=== PATIENT | female | born 2000 | race Two or more races ===

== ENCOUNTER 2018-12-19 16:20 | Emergency (ER) | payer SELFPAY ==
[2018-12-19] MEDS ORDERED: PENICILLIN G BENZATHINE 1.2 MILLION UNIT/2 ML DISP.SYRIN IM ONE (19:11)
[2018-12-19] MEDS ORDERED: IBUPROFEN 600 MG TABLET PO ONE (19:11)
[2018-12-19] MEDS ORDERED: DEXAMETHASONE SOD PHOS INJ 10 MG/1 ML VIAL IM ONE (19:11)
--- NOTE | 2018-12-19 19:16 | ER Document Report ---
ED Oral Problem - General Chief Complaint: Neck Swelling Stated Complaint: RIGHT SIDE NECK PAIN, SWELLING Time Seen by Provider: 12/19/18 19:03 Mode of Arrival: Ambulatory Information source: Patient TRAVEL OUTSIDE OF THE [place] IN LAST 30 DAYS: No - HPI Patient complains to provider of: Sore throat Notes: Patient here with complaints of sore throat and neck pain. Patient states pain started approximately a few days ago. Pain is worse with movement as well as swallowing. Pain seems to be located more on the right than the left. No fever. No difficulty breathing or swallowing. No chest pain or shortness of breath. No nausea, vomiting, diarrhea. No injury. No blurred or loss of vision. No rash. Pain is moderate, constant, worse with swallowing, nothing makes it better. She is taken no medication today. She denies any severe headache. No blurred or loss of vision. No other complaints. - Related Data Allergies/Adverse Reactions: No Known Allergies Allergy (Unverified 12/19/18 16:25) Past Medical History - Social History Smoking Status: Current Every Day Smoker Family History: Reviewed & Not Pertinent Patient has suicidal ideation: No Patient has homicidal ideation: No Renal/ Medical History: Denies: Hx Peritoneal Dialysis Review of Systems - Review of Systems -: Yes All other systems reviewed and negative Physical Exam - Vital signs Vitals: Temp Pulse Resp BP Pulse Ox 98.3 F 91 18 144/94 H 98 12/19/18 16:28 12/19/18 16:28 12/19/18 16:28 12/19/18 16:28 12/19/18 16:28 - Notes Notes: GENERAL: alert, cooperative, nontoxic, no distress. HEAD: normocephalic, atraumatic EYES: conjunctiva pink without discharge, no external redness or swelling. EARS: no external swelling, no external redness, no mastoid redness, swelling, tenderness. Ear canals are clear without swelling or drainage. TMs pearly martinez, no redness, no bulging, normal landmarks, no perforation. NOSE: atraumatic, no external swelling. clear rhinorrhea noted. MOUTH/THROAT: mucous membranes moist and pink, patient with palatal petechiae with erythema and bilateral tonsillar swelling. No exudate. No peritonsillar abscess. No trismus or drooling. Voice is normal. NECK: soft, supple, full range of motion, no meningismus. No swelling, bilateral anterior cervical lymphadenopathy. Mild tenderness along the right lateral neck. No swelling. CHEST: no distress, lungs clear and equal throughout. No wheezing, rales, rhonchi. CARDIAC: regular rate and rhythm, no murmur, normal capillary refill, normal pulses. No peripheral edema noted. BACK: full range of motion, no CVA tenderness. EXTREMITIES: full range of motion of all extremities. No redness, no swelling. NEURO: alert and oriented A&O3, no focal deficits, full range of motion of all extremities. PYSCH: appropriate mood, affect. Patient is cooperative. SKIN: pink, warm, dry, no rash. Course - Re-evaluation Re-evalutation: 12/19/18 19:14 Patient is nontoxic appearing with stable vitals. Patient is here with complaints of sore throat and neck pain. Throat exam consistent with streptococcal pharyngitis that she has palatal petechiae with erythema and swelling. No signs of peritonsillar abscess, epiglottitis or other serious illness. She has some cervical lymphadenopathy. Patient will be given a dose of Decadron, Bicillin, Motrin. Patient will be discharged home with instructions to follow-up if not improving the next 2 days, sooner for worsening pain, fever, swelling, difficulty breathing or swelling, persistent vomiting, or for any further concerns. The patient's emergency department workup and current diagnosis were explained to the patient and or family. Follow-up instructions were provided. Medications if prescribed were discussed. Instructions for when to return to the emergency department including specific worrisome symptoms were discussed with the patient and/or family. - Vital Signs Vital signs: Temp Pulse Resp BP Pulse Ox 98.3 F 91 18 144/94 H 98 12/19/18 16:28 12/19/18 16:28 12/19/18 16:28 12/19/18 16:28 12/19/18 16:28 Discharge - Discharge Clinical Impression: Strep pharyngitis Condition: Stable Disposition: HOME, SELF-CARE Instructions: Strep Throat ([facility]) Additional Instructions: Take medication as prescribed. Drink plenty fluids. Tylenol as needed for pain. Follow-up if not improved in the next 2 days, sooner for worsening pain, fever, difficulty breathing or swallowing, persistent vomiting, or for any further concerns. Change her toothbrush in 48 hours. Prescriptions: Naproxen [Naprosyn] 500 mg PO BID #20 tablet Forms: Elevated Blood Pressure, Smoking Cessation Education Referrals: [facility] [Provider Group] - Follow up as needed
[2018-12-19 20:28] VITALS: BP 98/62
== END 2018-12-19 20:19 | disposition home or self-care (01) ==
LOC: ER 16:20
DX: J02.0 Streptococcal pharyngitis (principal); R22.1 Localized swelling, mass and lump, neck; M54.2 Cervicalgia; F17.200 Nicotine dependence, unspecified, uncomplicated
CPT/HCPCS: 99283; 96372; J0561; J1100

== ENCOUNTER 2019-09-10 20:37 | Emergency (ER) | payer SELFPAY ==
[2019-09-10 21:02] LABS: ABSOLUTE BASOPHILS # (AUTO) 0.1 10^3/uL (0.0-0.2); ABSOLUTE EOSINOPHILS # (AUTO) 0.2 10^3/uL (0.0-0.6); ABSOLUTE LYMPHOCYTES (AUTO) 1.9 10^3/uL (0.5-4.7); ABSOLUTE MONOCYTES (AUTO) 0.6 10^3/uL (0.1-1.4); ABSOLUTE NEUT (AUTO) 8.2 10^3/uL (1.7-8.2); BASOPHILS % (AUTO) 0.8 % (0-2); EOSINOPHILS % (AUTO) 1.8 % (0-6); HEMATOCRIT 41.9 % (36.0-47.0); HEMOGLOBIN 14.3 g/dL (12.0-15.5); LYMPHOCYTES % (AUTO) 17.6 % (13-45); MEAN CORPUSCULAR HEMOGLOBIN 28.4 pg (27.0-33.4); MEAN CORPUSCULAR HGB CONC 34.1 g/dL (32.0-36.0); MEAN CORPUSCULAR VOLUME 84 fl (80-97); MONOCYTES % (AUTO) 5.4 % (3-13); PLATELET COUNT 327 10^3/uL (150-450); RED BLOOD COUNT 5.02 10^6/uL (3.72-5.28); RED CELL DISTRIBUTION WIDTH 13.2 % (11.5-14.0); SEGMENTED NEUTROPHILS % (AUTO) 74.4 % (42-78); TOTAL CELLS COUNTED % (AUTO) 100 %
[2019-09-10 21:42] LABS: ALBUMIN 4.6 g/dL (3.5-5.0); ALKALINE PHOSPHATASE 68 U/L (38-126); ANION GAP 11 (5-19); ASPARTATE AMINO TRANSFERASE 23 U/L (14-36); BILIRUBIN,DIRECT 0.3 mg/dL (0.0-0.4); BILIRUBIN,TOTAL 0.5 mg/dL (0.2-1.3); BLOOD UREA NITROGEN 12 mg/dL (7-20); CALCIUM 9.7 mg/dL (8.4-10.2); CARBON DIOXIDE 23 mmol/L (22-30); CHLORIDE 104 mmol/L (98-107); GLUCOSE 96 mg/dL (75-110); POTASSIUM 3.9 mmol/L (3.6-5.0); TOTAL PROTEIN 8.2 g/dL (6.3-8.2)
[2019-09-10 21:44] LABS: ACETAMINOPHEN < 10 ug/mL (10-30); ALCOHOL < 10 mg/dL (NONE DETECTED); SALICYLATE < 1.0 mg/dL (2.0-20.0)
[2019-09-10 23:15] LABS: APPEARANCE,URINE CLOUDY; BILIRUBIN,URINE NEGATIVE (NEGATIVE); COLOR,URINE YELLOW; GLUCOSE, URINE NEGATIVE (NEGATIVE); KETONES,URINE TRACE mg/dL (NEGATIVE); LEUKOCYTE ESTERASE,URINE LARGE (NEGATIVE); NITRITE,URINE POSITIVE (NEGATIVE); PROTEIN,URINE 30 mg/dL (NEGATIVE); URINE SPECIFIC GRAVITY 1.019; UROBILINOGEN,URINE NEGATIVE mg/dL (<2.0)
[2019-09-10 23:35] LABS: URINE AMPHETAMINES SCREEN NEGATIVE; URINE BARBITURATES SCREEN NEGATIVE; URINE BENZODIAZEPINES SCREEN NEGATIVE; URINE COCAINE SCREEN NEGATIVE; URINE METHADONE SCREEN NEGATIVE; URINE PHENCYCLIDINE SCREEN NEGATIVE
[2019-09-10 23:38] LABS: URINE MARIJUANA (THC) SCREEN UNCONFIRMED POSITIVE
--- NOTE | 2019-09-11 01:36 | ER Document Report ---
ED General - General Chief Complaint: Suicidal Ideation Stated Complaint: SUICIDAL IDEATIONS Time Seen by Provider: 09/11/19 00:26 Mode of Arrival: Ambulatory Information source: Patient TRAVEL OUTSIDE OF THE [place] IN LAST 30 DAYS: No - HPI Onset: Just prior to arrival Onset/Duration: Sudden Quality of pain: No pain Severity: Moderate Pain Level: Denies Associated symptoms: Other - Depression, Anxiety, Shaking Spells, Cutting Arms Superficially Exacerbated by: Denies Relieved by: Denies Similar symptoms previously: No Recently seen / treated by doctor: No Notes: 19 year old female with no significant PMH here for anxiety, depression, cutting herself and taking several motrin tablets since she felt depressed and lost. Apparently the patient has been dealing with a lot as of late including the masoud th of several family members. The patient just found out about the of her brother and that sent her over the edge today. The patient cut herself superficially with a piece of glass from a picture frame and she also took 6 motrin tablets. The patient apparently was noticed shaking some but she denies being confused or altered after the event and she denies bitting her tongue, or being incontinent. The patient is awake and alert in the ER and she is with her . The patient says she just acted out today since she was so stressed out. The patient tells me she did not want to actually harm herself. - Related Data Allergies/Adverse Reactions: No Known Allergies Allergy (Unverified 12/19/18 16:25) Past Medical History - General Information source: Patient - Social History Smoking Status: Never Smoker Frequency of alcohol use: None Drug Abuse: Marijuana Lives with: Spouse/Significant other Family History: Reviewed & Not Pertinent Patient has suicidal ideation: Yes Patient has homicidal ideation: No - Past Medical History Cardiac Medical History: Reports: None Pulmonary Medical History: Reports: None EENT Medical History: Reports: None Neurological Medical History: Reports: None Endocrine Medical History: Reports: None Renal/ Medical History: Reports: None. Denies: Hx Peritoneal Dialysis Malignancy Medical History: Reports: None GI Medical History: Reports: None Musculoskeletal Medical History: Reports None Skin Medical History: Reports None Psychiatric Medical History: Reports: Hx Bipolar Disorder, Hx Depression Review of Systems - Review of Systems Constitutional: No symptoms reported EENT: No symptoms reported Cardiovascular: No symptoms reported Respiratory: No symptoms reported Gastrointestinal: No symptoms reported Genitourinary: No symptoms reported Female Genitourinary: No symptoms reported Musculoskeletal: Other - superficial cuts or her arms (self inflicted) Skin: No symptoms reported Hematologic/Lymphatic: No symptoms reported Neurological/Psychological: Depression, Anxiety, Other - shaking event, acting out events by self cutting and shaking Physical Exam - Vital signs Vitals: Temp Pulse Resp BP Pulse Ox 98.6 F 89 14 122/76 100 09/10/19 20:40 09/10/19 20:40 09/10/19 20:40 09/10/19 20:40 09/10/19 20:40 - Notes Notes: GENERAL: Well-appearing, well-nourished and in no acute distress. HEAD: Atraumatic, normocephalic. EYES: Pupils equal round and reactive to light, extraocular movements intact, sclera anicteric, conjunctiva are normal. ENT: TMs normal, nares patent, oropharynx clear without exudates. Moist mucous membranes. NECK: Normal range of motion, supple without lymphadenopathy or JVD. LUNGS: Breath sounds clear to auscultation bilaterally and equal. No wheezes rales or rhonchi. HEART: Regular rate and rhythm without murmurs, rubs or gallops. ABDOMEN: Soft, nontender, normoactive bowel sounds. No guarding, no rebound. No masses appreciated. EXTREMITIES: Normal range of motion, no pitting or edema. No clubbing or cyanosis. NEUROLOGICAL: Cranial nerves II through XII grossly intact. Normal speech, normal gait. PSYCH: Normal mood, normal affect. Patient is denying SI or HI at this time and she says she was and is depressed but was just acting out after the news of the of her brother. SKIN: Warm, Dry, normal turgor, no rashes or lesions noted, superficial abrasions/minor lacerations to arms that do not require repair Course - Re-evaluation Re-evalutation: 09/11/19 03:22 The patient came to the ER since she had cut her arms superficially and since she had some shaking spells all after hearing about the of her brother. The patient says she has been under a lot of stress and the news of her brother sent her over the edge. The patient tells me she was not actually suicidal and she promises she will never do this again. The patient lives with her and she tells me she will contract for safety. The patient does not want to wait for psych to see her in the AM at 7am. Patient understands cutting behavior and taking medications as an act or deliberately trying to harm her self is concerning behavior. Patient knows this and promises to follow up with outpatient psych. Patient's promises to stay with the patient 24 hours a day for the next few days. 09/11/19 03:27 Patient's shaking episodes do not seem like seizures since she did not lose consciousness. Patient was offered a head CT but she refused and told me she would follow up with a PCP or Neurologist if shaking spells happened while not under stress like she was today. 09/11/19 03:28 The patient's UA was noted to be possibly infectious by me after the patient left the ER. I am not sure if she is having UTI like symptoms. Will call the patient tomorrow when I am back on shift to follow up with her and to see if she needs an antibiotic called in her for her. - Vital Signs Vital signs: Temp Pulse Resp BP Pulse Ox 98.2 F 89 16 113/75 98 09/11/19 01:27 09/10/19 20:40 09/11/19 01:02 09/11/19 01:02 09/11/19 01:02 - Laboratory Result Diagrams: 09/10/19 20:45 09/10/19 20:45 Laboratory results interpreted by me: 09/10/19 09/10/19 09/10/19 20:45 20:45 22:51 WBC 11.0 H Urine Protein 30 H Urine Ketones TRACE H Urine Blood SMALL H Urine Nitrite POSITIVE H Ur Leukocyte Esterase LARGE H Salicylates < 1.0 L Acetaminophen < 10 L - EKG Interpretation by Me EKG shows normal: Sinus rhythm, [place], Intervals, QRS Complexes, ST-T Waves Rate: Normal Discharge - Discharge Clinical Impression: Mood disorder Depression Qualifiers: Depression Type: reactive depression Qualified Code(s): F32.9 - Major depressive disorder, single episode, unspecified Condition: Stable Disposition: HOME, SELF-CARE Instructions: Depression ([facility]), Suicidal Ideation ([facility]) Additional Instructions: Follow up with outpatient mental health as soon as possible. Return to an ER for thoughts of wanting to harm yourself or if you are worse in anyway.
[2019-09-11 01:55] VITALS: BP 113/75
--- NOTE | 2019-09-11 11:25 | EKG REPORT ---
SEVERITY:- NORMAL ECG - SINUS RHYTHM : Confirmed by: Darlene Noyola MD 11-Sep-2019 11:25:10
== END 2019-09-11 01:50 | disposition home or self-care (01) ==
LOC: ER 20:37
DX: T39.312A Poisoning by propionic acid derivatives, intentional self-harm, initial encounter (principal); S41.112A Laceration without foreign body of left upper arm, initial encounter; S41.111A Laceration without foreign body of right upper arm, initial encounter; F39 Unspecified mood [affective] disorder; F32.9 Major depressive disorder, single episode, unspecified; F41.9 Anxiety disorder, unspecified; X78.9XXA Intentional self-harm by unspecified sharp object, initial encounter; Y92.9 Unspecified place or not applicable
CPT/HCPCS: 36415; 80053; 80307; 81001; 84703; 85025; 93005; 93010; 99284